=== PATIENT | female | born 1965 | race Caucasian/White ===

== ENCOUNTER 2023-10-17 06:11 | Emergency (ER) | payer OTHER, SELFPAY ==
[2023-10-17 06:12] VITALS: BP 141/87
[2023-10-17 06:30] VITALS: BMI 23.8
--- NOTE | 2023-10-17 06:44 | ED.GENMED ---
History of Present Illness
General
Chief Complaint: Numbness
Source: patient, records and spouse
Exam Limitations: none
Time Seen by Provider: 10/17/23 06:17
Nursing documentation reviewed up to this point in time: agreed with
History of Present Illness
History of Present Illness:
Patient is a 58-year-old female who presents to the emergency department after waking at 5 AM with numbness and paresthesias in her upper extremities left greater than right. Patient was sleeping on her right at the time. Patient has not
experienced this previously. Patient also felt lightheaded. Patient denies any visual or speech difficulties. Patient denied any focal weakness or ataxia. Patient did feel lightheaded and no vertigo. Patient denies any neck pain. Patient does
see a chiropractor but has not been manipulated for months. Patient denies chest pain, shortness of breath or palpitations. Patient denies any GI or symptoms. Patient denies any recent illnesses or injuries. Patient does not smoke. Patient
denies history of hypertension, diabetes, elevated cholesterol. Patient recently started on medication for osteoporosis including hormone replacement therapy.
Past History
Past History
ED Past Medical History: Other (Osteoporosis)
Social History
Tobacco: Non-smoker
Review of Systems
Review of Systems
All Other Systems: ROS reviewed and negative except as documented in HPI and ROS
Constitutional: Reports no symptoms
EENT: Reports no symptoms
Respiratory: Reports no symptoms
Cardiac: Reports no symptoms
ABD/GI: Reports no symptoms
: Reports no symptoms
Musculoskeletal: Denies neck pain or back pain
Skin: Reports no symptoms
Neurological: Reports numbness (Upper extremities only); Denies weakness
Hematologic/Lymphatic: Reports no symptoms
Psychiatric: Reports no symptoms
Phy Exam
Physical Exam
Physical Exam:
Physical Exam
General: No apparent distress, alert and appropriate, well nourished, well hydrated
HENT: Normocephalic, supple with no lymphadenopathy, no thyromegaly
Eyes: Clear sclera, conjuctiva without injection
Heart: Regular rhythm and rate. No S3, S4. No murmur. No NVD, bruit
Lungs: No respiratory distress, no stridor, lung sounds clear and equal bilaterally
Abdomen: Soft, nontender, no organomegaly, no CVA tenderness, BS good
Neuro: Alert and oriented x 3, CN II - XII intact, no motor focality, no cerebellar dysfunction, sensory intact
Skin: no rash
Psychiatric: well kept. interactive and cooperative
Extremities: No edema, cyanosis, tenderness, Good and equal peripheral pulses.
Scores
NIH Stroke Score
Level of Consciousness: 0 - Alert
LOC Questions: 0-Answers both correctly
LOC Commands: 0-Performs both correctly
Best Horizontal Gaze: 0-Normal
Visual [place]: 0=Normal, no visual loss
Facial Palsy: 0=Normal, symmetrical
Motor - Right Arm: 0=No drift 10 seconds
Motor - Left Arm: 0=No drift 10 seconds
Motor - Right Le-No drift 5 seconds
Motor - Left Le-No drift 5 seconds
Limb Ataxia: 0-Absent
Sensation: 0-Normal
Best Language: 0-No aphasia
Dysarthria: 0-Normal
Extinction and Inattention: 0-No abnormality
Total Score:: 0
Course
Orders/Labs/Results
Orders:
Orders
10/17/23 06:32
Electrocardiogram (*1) Urgent
Reason for Study: TIA/Stroke
CT Cervical Spine W/o Iv Contr Urgent
Comment:
Reason For Exam: numb/parethesias upper extremities
CT Head W/o Iv Contrast Urgent
Comment:
Reason For Exam: numbness left UE
EKG- Treatment ONCE
10/17/23 06:48
Complete Blood Count/With Diff Urgent
Comprehensive Metabolic Panel Urgent
Magnesium Urgent
Phosphorus Urgent
TSH Reflex To Free T4 Urgent
Troponin I Urgent
Abnormal Lab Results
10/17/23
06:48
Monocytes % 9.6 H %
(1.7-9.3)
10/17/23 06:48
10/17/23 06:48
Vital Signs
Initial and Last Documented VS:
Initial Vital Signs
Temp Pulse Resp BP Pulse Ox
98.2 F 95 18 141/87 99
10/17/23 06:12 10/17/23 06:12 10/17/23 06:12 10/17/23 06:12 10/17/23 06:12
Last Documented Vital Signs
Temp Pulse Resp BP Pulse Ox
98.2 F 81 22 123/76 98
10/17/23 06:12 10/17/23 08:30 10/17/23 08:30 10/17/23 08:13 10/17/23 08:30
*Radiology
Radiology exam reviewed: radiology read reviewed (djd C4-5, C6-7)
*Pulse Oximetry
Patient hypoxic: no
*EKG
Interpreted by ED Provider?: Yes
EKG Intrepretation Date: 10/17/23
EKG Intrepretation Time: 08:34
Interpretation: normal
Comparison EKG: no changes
Heart Rate: 74
Rate: normal
Rhythm: sinus
[place]: normal axis
Interval: normal interval
QRS Pattern: normal QRS
Ischemia: no ischemia
*Radio Tower Technician Interpretation
Rate: normal
Interpretation: normal
Heart Rate: 74
Rhythm: sinus
*Critical Care Note
Total Time (30-74mins, 75-104mins- exclusive of procedures): Not Applicable
Update Note
Update Note:
Given the bilateral nature of this believe it is more spinal cord radiculopathy. The radicular symptoms should be C7-T1 but the changes are mostly above that. However we will treat the patient with anti-inflammatories. Patient declined steroids
which I think is appropriate given that she is being treated for osteoporosis. In addition patient will follow-up with her primary care physician for further evaluation and possible PT and MRI. Patient shows no signs of cerebrovascular disease.
ED Attending Note
-
Portions of this chart may have been created with voice recognition software.� Occasional wrong word or��sound alike� substitutions may have occurred due to the inherent limitations of voice recognition software.
Discharge Plan
Departure
Patient Disposition: Home (Routine Discharge)
Date of Disposition: 10/17/23
Time of Disposition: 08:36
Patient with high blood pressure during this ER visit?: Yes
Condition: Good
Covid-19: Not Applicable
Discharge Problem:
Cervical radiculopathy
Prescriptions:
New
celecoxib [Celebrex] 200 mg capsule
200 mg PO BID Qty: 30 0RF
gabapentin 100 mg capsule
100 mg PO TID Qty: 30 0RF
No Action
[place] 3 Fish Oil Capsule
1 cap PO DAILY
cholecalciferol (vitamin D3) [Vitamin D3] 50 mcg (2,000 unit) Tablet
50 mcg PO DAILY
Referrals:
UNKNOWN - PT DOES,NOT KNOW [Family Provider] -
Activity Restrictions/Additional Instructions:
Make sure to follow-up with your physician in the next 4 to 5 days. If this symptoms are persistent you may need further workup and possible physical therapy. Any problems especially with speech or vision or one-sided weakness please return
immediately.
Interventions
Interventions:
*Neglect/Abuse Screening Last Done: 10/17/23 06:21
ED- Fall Risk Assessment Last Done: 10/17/23 06:30
ED- Neurological Assessment Last Done: 10/17/23 06:30
Discharge Date and Time
Print Language: BENGALI
[2023-10-17 07:07] VITALS: BP 124/80
[2023-10-17 07:11] LABS: ALT (SGPT) 28 U/L (0-35); AST (SGOT) 36 U/L (14-36); Albumin 4.3 g/dl (3.5-5.0); Alkaline Phosphatase 86 U/L (38-126); Blood Urea Nitrogen 17 mg/dl (7-17); Calcium 9.2 mg/dl (8.4-10.2); Carbon Dioxide 26 mmol/L (22-30); Chloride 107 mmol/L (98-107); Estimated Creatinine Clearance 93 ml/min; Glucose 98 mg/dl (70-99); Magnesium 2.1 mg/dl (1.6-2.3); Potassium 3.9 mmol/L (3.5-5.1); Sodium 139 mmol/L (135-145); Total Bilirubin 0.5 mg/dl (0.2-1.3); Total Protein 6.8 g/dl (6.3-8.2); eGFR > 60.00
[2023-10-17 07:16] LABS: % Basophils 0.8 % (0-2); % Eosinophils 1.2 % (0-6); % Immature Granulocytes 0.2 % (0-0.5); % Lymphocytes 35.3 % (20.5-51.1); % Monocytes 9.6 % (1.7-9.3); % Neutrophils 52.9 % (42.2-75.2); Absolute Eosinophils 0.1 10^3/uL (0-0.7); Absolute Lymphocytes 1.8 10^3/uL (1.2-3.4); Absolute Monocytes 0.5 10^3/uL (0.1-0.6); Absolute Neutrophils 2.7 10^3/uL (1.4-6.5); Hematocrit 37.4 % (37.0-47.0); Hemoglobin 13.3 g/dL (12.0-16.0); Mean Corp Hgb Conc. 35.6 g/dL (33.0-37.0); Mean Corpuscular Hgb 30.8 pg (27.0-31.0); Mean Corpuscular Volume 86.6 fL (81.0-99.0); Mean Platelet Volume 10.4 fL (7.4-10.4); Nucleated Red Blood Cells % 0 %; Platelet Count 255 10^3/uL (130-400); Red Blood Cell Count 4.32 10^6/uL (4.20-5.40); Red Cell Dist. Width 12.4 % (11.5-14.5); White Blood Cell Count 5.1 10^3/uL (4.8-10.8)
[2023-10-17 07:22] LABS: Troponin I < 0.012 ng/ml
[2023-10-17 08:13] VITALS: BP 123/76
== END 2023-10-17 08:56 | disposition home or self-care (01) ==
LOC: EMR 06:11
PROVIDERS: EMERGENCY PHYSICIAN Emergency Medicine
DX: M47.22 Other spondylosis with radiculopathy, cervical region (principal); M81.0 Age-related osteoporosis without current pathological fracture; Z79.890 Hormone replacement therapy
CPT/HCPCS: 99284; 70450; 72125; 80053; 83735; 84100; 84443; 84484; 85025; 93005

== ENCOUNTER → 2024-02-22 14:58 | Outpatient (REF) | payer OTHER, SELFPAY | LOC: WDC 14:58 | PROVIDERS: ATTENDING PHYSICIAN Family Medicine | DX: Z12.31 Encounter for screening mammogram for malignant neoplasm of breast (principal) | CPT/HCPCS: 77063; 77067 ==

== ENCOUNTER → 2024-06-28 10:09 | Outpatient (REF) | payer BC, SELFPAY | LOC: REG 10:09 | PROVIDERS: ATTENDING PHYSICIAN Family Medicine | DX: R30.0 Dysuria (principal) | CPT/HCPCS: 87086 ==

== ENCOUNTER → 2024-06-29 09:27 | Outpatient (REF) | payer BC, SELFPAY ==
[2024-06-29 11:25] LABS: Intact PTH 84.6 pg/ml (13.6-85.8)
[2024-06-29 12:12] LABS: ALT (SGPT) 30 U/L (0-35); AST (SGOT) 26 U/L (14-36); Albumin 4.3 g/dl (3.5-5.0); Alkaline Phosphatase 74 U/L (38-126); Blood Urea Nitrogen 13 mg/dl (7-17); Calcium 9.2 mg/dl (8.4-10.2); Carbon Dioxide 26 mmol/L (22-30); Chloride 106 mmol/L (98-107); Glucose 91 mg/dl (70-99); Potassium 4.3 mmol/L (3.5-5.1); Sodium 141 mmol/L (135-145); Total Bilirubin 0.6 mg/dl (0.2-1.3); eGFR > 60.00
== END ==
LOC: REG 09:27
PROVIDERS: ATTENDING PHYSICIAN Internal Medicine Rheumatology; FAMILY PHYSICIAN Family Medicine
DX: E55.9 Vitamin D deficiency, unspecified (principal); M50.00 Cervical disc disorder with myelopathy, unspecified cervical region; M81.0 Age-related osteoporosis without current pathological fracture
CPT/HCPCS: 36415; 80053; 83970

== ENCOUNTER → 2024-07-05 14:51 | Outpatient (REF) | payer BC, SELFPAY | LOC: REG 14:51 | PROVIDERS: ATTENDING PHYSICIAN Family Medicine | DX: R30.0 Dysuria (principal) | CPT/HCPCS: 87086 ==

== ENCOUNTER → 2024-07-25 08:27 | Outpatient (REF) | payer BC, SELFPAY | LOC: HWRAD 08:27 | PROVIDERS: ATTENDING PHYSICIAN Internal Medicine Rheumatology; FAMILY PHYSICIAN Family Medicine | DX: M81.0 Age-related osteoporosis without current pathological fracture (principal) | CPT/HCPCS: 77080 ==

== ENCOUNTER → 2025-02-02 09:02 | Outpatient (REF) | payer BC, SELFPAY ==
[2025-02-02 09:45] LABS: Hematocrit 37.9 % (37.0-47.0); Hemoglobin 12.7 g/dL (12.0-16.0); Mean Corp Hgb Conc. 33.5 g/dL (33.0-37.0); Mean Corpuscular Volume 88.6 fL (81.0-99.0); Nucleated Red Blood Cells % 0 %; Platelet Count 294 10^3/uL (130-400); Red Cell Dist. Width 12.0 % (11.5-14.5)
[2025-02-02 10:54] LABS: ALT (SGPT) 27 U/L (0-35); AST (SGOT) 23 U/L (14-36); Albumin 4.2 g/dl (3.5-5.0); Alkaline Phosphatase 97 U/L (38-126); Blood Urea Nitrogen 13 mg/dl (7-17); Calcium 8.8 mg/dl (8.4-10.2); Carbon Dioxide 25 mmol/L (22-30); Chloride 105 mmol/L (98-107); Glucose 88 mg/dl (70-99); Potassium 4.4 mmol/L (3.5-5.1); Sodium 134 mmol/L (135-145); Total Protein 7.2 g/dl (6.3-8.2); eGFR > 60.00
[2025-02-02 12:43] LABS: Vitamin D, 25-OH*** 50.9 ng/mL (30-80)
[2025-02-03 22:31] LABS: CTx 32 pg/mL
== END ==
LOC: REG 09:02
PROVIDERS: ATTENDING PHYSICIAN Student in an Organized Health Care Education/Training Program; FAMILY PHYSICIAN Family Medicine
DX: E55.9 Vitamin D deficiency, unspecified (principal); M19.071 Primary osteoarthritis, right ankle and foot; M50.30 Other cervical disc degeneration, unspecified cervical region; M81.0 Age-related osteoporosis without current pathological fracture; Z51.81 Encounter for therapeutic drug level monitoring
CPT/HCPCS: 36415; 80053; 82306; 82523; 85025

== ENCOUNTER → 2025-02-27 14:57 | Outpatient (REF) | payer BC, SELFPAY | LOC: WDC 14:57 | PROVIDERS: ATTENDING PHYSICIAN Family Medicine | DX: Z12.31 Encounter for screening mammogram for malignant neoplasm of breast (principal) | CPT/HCPCS: 77063; 77067 ==

== ENCOUNTER → 2025-03-13 08:36 | Outpatient (REF) | payer BC, SELFPAY ==
[2025-03-13 09:50] LABS: HDL Cholesterol 73 mg/dl; LDL Cholesterol, Calculated 133 mg/dl; Very Low Density Lipoprotein 18 mg/dl (0-30)
[2025-03-16 10:57] LABS: HDL Particle Number, NMR 38.3 umol/L (>=33.0); HDL Particle Size, NMR 9.1 nm (>=8.9); LDL Particle Number, NMR 1557 nmol/L (<=1135); LDL Particle Size, NMR 21.4 nm (>=20.7); Large HDL Particle Number, NMR 8.1 umol/L (>=4.2); Large VLDL Particle Number,NMR <1.5 nmol/L (<=2.7); Small LDL Particle Number, NMR 409 nmol/L (<=634); VLDL Particle Size, NMR 45.1 nm (<=46.7)
== END ==
LOC: REG 08:36
PROVIDERS: ATTENDING PHYSICIAN Family Medicine
DX: E78.00 Pure hypercholesterolemia, unspecified (principal); Z79.890 Hormone replacement therapy
CPT/HCPCS: 36415; 80061; 82670; 83704

== ENCOUNTER → 2025-03-13 09:16 | Outpatient (REF) | payer BC, SELFPAY | LOC: WDC 09:16 | PROVIDERS: ATTENDING PHYSICIAN Family Medicine | DX: R92.8 Other abnormal and inconclusive findings on diagnostic imaging of breast (principal) | CPT/HCPCS: 76642 ==